=== PATIENT | male | born 2000 | race African-American/Black ===

== ENCOUNTER 2018-05-27 10:01 | Emergency (ER) | payer MEDICAID, OTHER ==
[2018-05-27] MEDS ORDERED: BOOSTRIX IM ONE (11:01)
[2018-05-27] MEDS ORDERED: IBUPROFEN PO ONE (11:01)
--- NOTE | 2018-05-27 11:06 | Emergency Department Report ---
ED Laceration HPI - HPI Chief Complaint: Extremity Injury, Upper Stated Complaint: THUMB INJURY Time Seen by Provider: 05/27/18 11:00 Occurred When: Today Location: Upper Extremity Severity: mild Tetanus Status: Not up to Date Laceration Symptoms: Yes Pain, No Foreign Body Sensation, No Numbness, No Weakness Other History: This is a 18-year-old male nontoxic, well nourished in appearance, no acute signs of distress presents to the ED with c/o of left thumb laceration that occurred this morning. Patient stated that a bed frame fell on his finger ankle laceration. Patient denies any other trauma. Denies decreased sensation or range of motion. Stated that bleeding is under control. Denies being of stated tetanus. Denies any nausea, vomiting, chest pain or shortness of breath, headache or stiff neck. Denies any allergies significant past medical history. ED Review of Systems ROS: Stated complaint: THUMB INJURY Other details as noted in HPI Constitutional: denies: chills, fever Eyes: denies: eye pain, eye discharge, vision change ENT: denies: ear pain, throat pain Respiratory: denies: cough, shortness of breath, wheezing Cardiovascular: denies: chest pain, palpitations Endocrine: no symptoms reported Gastrointestinal: denies: abdominal pain, nausea, diarrhea Genitourinary: denies: urgency, dysuria Musculoskeletal: denies: back pain, joint swelling, arthralgia Skin: denies: rash, lesions Neurological: denies: headache, weakness, paresthesias Psychiatric: denies: anxiety, depression Hematological/Lymphatic: denies: easy bleeding, easy bruising ED Past Medical Hx - Past Medical History Previous Medical History?: Yes Hx Diabetes: Yes Additional medical history: ADHD - Surgical History Past Surgical History?: No - Social History Smoking Status: Never Smoker Substance Use Type: None - Medications Home Medications: Home Medications Medication Instructions Recorded Confirmed Last Taken Type Dextroamphetamine/Amphetamine 1 tab PO DAILY 06/08/14 06/08/14 06/07/14 History [Adderall XR 30 mg] metFORMIN [Glucophage] 500 mg PO DAILY 06/08/14 06/08/14 06/07/14 History Ibuprofen [Motrin] 800 mg PO Q8H PRN #14 tablet 06/09/14 Unknown Rx Ondansetron [Zofran] 4 mg PO Q6HR PRN #14 tablet 06/09/14 Unknown Rx traMADol [Ultram] 50 mg PO Q6HR PRN #14 tablet 06/09/14 Unknown Rx Ibuprofen [Motrin] 600 mg PO Q8H PRN #20 tablet 05/27/18 Unknown Rx Laceration Physical Exam - Exam General: Vital signs noted. No distress. Alert and acting appropriately. Wound Length (cm): 1 Laceration Location: Upper Extremity Full Body Front + Back: 1 - 1 cm superficial laceration Laceration Exam: Yes Normal Distal CMS, No Foreign Body, No Exposed Tendon, Vessel, or Nerve, No Tendon Injury ED Course Vital Signs 05/27/18 10:06 Temperature 98.2 F Pulse Rate 82 Respiratory 18 Rate Blood Pressure 135/75 O2 Sat by Pulse 96 Oximetry - Reevaluation(s) Reevaluation #1: 05/27/18 11:03 Patient is speaking in full sentences with no signs of distress noted. - Laceration /Wound Repair Left Finger Wound Location: upper extremity Wound Length (cm): 1 Wound's Depth, Shape: superficial, linear Wound Explored: clean Irrigated w/ Saline (ccs): 40 Betadine Prep?: Yes Wound Repaired With: Dermabond Layer Closure?: No Sterile Dressing Applied?: Yes Progress: Under sterile field, I used Betadine to clean the area. I then used 40 mL of normal saline to flush the area. I then used Dermabond to approximate the laceration. I then applied a sterile 4 x 4 with tape. Minimal bleeding noted but is under control. Patient tolerated procedure well with no signs of distress. ED Medical Decision Making - Medical Decision Making This is a 18-year-old male that presents with laceration. Patient is stable and was examined by me. Dermabond applied to the laceration and and patient tolerated well. A sterile dressing has been applied. Patient was educated on proper wound care. Patient received tetanus booster in the ER. X-ray has been obtained and dictated per radiologist with no fractures or foreign body. Patient was notified of the x-ray results with no questions noted by the patient. Patient was instructed to refer to Follow-up with a primary care doct or in 3-5 days or if symptoms worsen and continue return to emergency room as soon as possible. At time of discharge, the patient does not seem toxic or ill in appearance. No acute signs of distress noted. Patient agrees to discharge treatment plan of care. No further questions noted by the patient. Critical care attestation.: If time is entered above; I have spent that time in minutes in the direct care of this critically ill patient, excluding procedure time. ED Disposition Clinical Impression: Laceration Contusion of left thumb Qualifiers: Encounter type: initial encounter Damage to nail status: without damage Qualified Code(s): S60.012A - Contusion of left thumb without damage to nail, initial encounter Disposition: TO HOME OR SELFCARE Is pt being admited?: No Does the pt Need Aspirin: No Condition: Stable Instructions: Laceration (ED), Skin Adhesive Care (ED) Additional Instructions: Follow-up with a primary care doctor in 3-5 days or if symptoms worsen and continue return to emergency room as soon as possible. Prescriptions: Ibuprofen [Motrin] 600 mg PO Q8H PRN #20 tablet PRN Reason: Pain Referrals: PRIMARY CAREMD [Primary Care Provider] - 3-5 Days JODY LOPES MD [Staff Physician] - 3-5 Days [facility] [place]] - 3-5 Days [facility] [Outside] - 3-5 Days Forms: Work/School Release Form(ED)
--- NOTE | 2018-05-27 12:03 | XRay Report ---
LEFT FINGERS, 3 VIEWS History: Left finger pain, laceration. Findings: No acute osseous injury or joint pathology is demonstrated. There is mild soft tissue swelling of the proximal thumb. Otherwise, the soft tissues are within normal limits. Impression: Soft tissue swelling of the left thumb. No acute osseous injury.
[2018-05-27 12:17] VITALS: BP 135/70
== END 2018-05-27 12:12 | disposition home or self-care (01) ==
LOC: ED 10:01
DX: S60.012A Contusion of left thumb without damage to nail, initial encounter (principal); E11.9 Type 2 diabetes mellitus without complications; W26.8XXA Contact with other sharp object(s), not elsewhere classified, initial encounter; Y93.89 Activity, other specified; Y92.098 Other place in other non-institutional residence as the place of occurrence of the external cause; Y99.8 Other external cause status
CPT/HCPCS: 90471; 90715

== ENCOUNTER 2019-05-07 04:51 | Emergency (ER) | payer SELFPAY ==
[2019-05-07 04:58] VITALS: BP 125/77
[2019-05-07] MEDS ORDERED: IBUPROFEN 800 MG TAB PO ONE (07:50)
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
== END 2019-05-07 08:38 | disposition home or self-care (01) ==
LOC: ED 04:51
DX: S60.042A Contusion of left ring finger without damage to nail, initial encounter (principal); E11.9 Type 2 diabetes mellitus without complications; Y04.0XXA Assault by unarmed brawl or fight, initial encounter; Y93.89 Activity, other specified; Y92.89 Other specified places as the place of occurrence of the external cause; Y99.8 Other external cause status
CPT/HCPCS: 99282

== ENCOUNTER 2020-07-03 05:18 | Emergency (ER) | payer BC ==
--- NOTE | 2020-07-03 06:07 | Event Note ---
ED Screening Note Date of service: 07/03/20 Time: 06:03 ED Screening Note: Patient complains of right arm and right knee pain after a fall last night; patient also complains of a laceration left hand States last tetanus 2 years ago This initial assessment/diagnostic orders/clinical plan/treatment(s) is/are subject to change based on patients health status, clinical progression and re- assessment by fellow clinical providers in the ED. Further treatment and workup at subsequent clinical providers discretion. Patient/guardian urged not to elope from the ED as their condition may be serious if not clinically assessed and managed. Initial orders include: xr
--- NOTE | 2020-07-03 06:35 | XRay Report ---
RIGHT KNEE 3 VIEW(S) INDICATION / CLINICAL INFORMATION: lateral pain after fall COMPARISON: None available. FINDINGS: BONES / JOINT(S): No acute fracture or subluxation. No significant arthritis. SOFT TISSUES: No significant abnormality. ADDITIONAL FINDINGS: None. Signer Name: Nick Kaur MD Signed: 07/03/2020 6:31 AM Workstation Name: [id number]
--- NOTE | 2020-07-03 06:59 | Emergency Department Report ---
ED General Adult HPI - General Chief complaint: Wound/Laceration Stated complaint: KNEE/ELBOW INJURY Time Seen by Provider: 07/03/20 05:50 Source: patient Mode of arrival: Ambulatory Limitations: No Limitations - History of Present Illness Initial comments: 20-year-old male patient presents with complaints of right knee pain, right elbow pain, and laceration to the left hand after a fall injury today. He reports his last tetanus vaccine was 2 years ago. Patient rates his pain as a 8/10 in severity overall. He denies any difficulty moving his elbow or his knee. He also denies any numbness/tingling/weakness in his limbs, however states there is mild swelling to the right knee. - Related Data Home Medications Medication Instructions Recorded Confirmed Last Taken Dextroamphetamine/Amphetamine 1 tab PO DAILY 06/08/14 06/08/14 06/07/14 [Adderall XR 30 mg] metFORMIN [Glucophage] 500 mg PO DAILY 06/08/14 06/08/14 06/07/14 Previous Rx's Medication Instructions Recorded Last Taken Type Ibuprofen [Motrin] 800 mg PO Q8H PRN #14 tablet 06/09/14 Unknown Rx Ondansetron [Zofran] 4 mg PO Q6HR PRN #14 tablet 06/09/14 Unknown Rx traMADoL [Ultram] 50 mg PO Q6HR PRN #14 tablet 06/09/14 Unknown Rx Ibuprofen [Motrin] 600 mg PO Q8H PRN #20 tablet 05/27/18 Unknown Rx Ibuprofen [Motrin] 800 mg PO Q8HR #30 tablet 05/07/19 Unknown Rx Mupirocin [Bactroban 2% OINT] 1 applic TP TID 7 Days #1 tube 07/03/20 Unknown Rx Naproxen 500 mg PO BID PRN 7 Days #14 tablet 07/03/20 Unknown Rx Allergies Allergy/AdvReac Type Severity Reaction Status Date / Time No Known Allergies Allergy Verified 05/27/18 10:11 ED Review of Systems ROS: Stated complaint: KNEE/ELBOW INJURY Other details as noted in HPI Constitutional: denies: chills, fever, malaise Respiratory: denies: shortness of breath Musculoskeletal: joint swelling, arthralgia. denies: back pain Skin: as per HPI. denies: change in color Neurological: denies: headache, numbness, paresthesias, abnormal gait ED Past Medical Hx - Past Medical History Hx Diabetes: Yes Additional medical history: ADHD - Surgical History Past Surgical History?: No - Social History Smoking Status: Never Smoker Substance Use Type: None - Medications Home Medications: Home Medications Medication Instructions Recorded Confirmed Last Taken Type Dextroamphetamine/Amphetamine 1 tab PO DAILY 06/08/14 06/08/14 06/07/14 History [Adderall XR 30 mg] metFORMIN [Glucophage] 500 mg PO DAILY 06/08/14 06/08/14 06/07/14 History Ibuprofen [Motrin] 800 mg PO Q8H PRN #14 tablet 06/09/14 Unknown Rx Ondansetron [Zofran] 4 mg PO Q6HR PRN #14 tablet 06/09/14 Unknown Rx traMADoL [Ultram] 50 mg PO Q6HR PRN #14 tablet 06/09/14 Unknown Rx Ibuprofen [Motrin] 600 mg PO Q8H PRN #20 tablet 05/27/18 Unknown Rx Ibuprofen [Motrin] 800 mg PO Q8HR #30 tablet 05/07/19 Unknown Rx Mupirocin [Bactroban 2% OINT] 1 applic TP TID 7 Days #1 tube 07/03/20 Unknown Rx Naproxen 500 mg PO BID PRN 7 Days #14 tablet 07/03/20 Unknown Rx ED Physical Exam - General Limitations: No Limitations General appearance: alert, in no apparent distress, obese - Head Head exam: Present: atraumatic, normocephalic - Eye Eye exam: Present: normal appearance - Neck Neck exam: Present: normal inspection - Respiratory Respiratory exam: Absent: respiratory distress - Cardiovascular Cardiovascular Exam: Present: regular rate - Extremities Exam Extremities exam: Present: full ROM, joint swelling (Hematoma noted to right lateral knee without overlying erythema; normal sensation and range of motion of the right knee noted; no tenderness to palpation of the right elbow or surrounding bones noted), other (Full range of motion of the right elbow is noted) - Back Exam Back exam: Present: full ROM - Neurological Exam Neurological exam: Present: alert, oriented X3 - Psychiatric Psychiatric exam: Present: normal affect, normal mood - Skin Skin exam: Present: warm, dry, normal color. Absent: intact (2 cm laceration noted to left dorsal aspect of hand without active bleeding or obvious foreign body), rash ED Course Vital Signs 07/03/20 07/03/20 05:30 07:47 Temperature 97.9 F 98 F Pulse Rate 112 H 85 Respiratory 14 18 Rate Blood Pressure 107/56 Blood Pressure 107/84 [Left] O2 Sat by Pulse 96 98 Oximetry - Laceration /Wound Repair Left Hand Wound Length (cm): 2 Wound's Depth, Shape: linear Wound Explored: clean Irrigated w/ Saline (ccs): 60 Betadine Prep?: Yes Anesthesia: 1% Lidocaine Volume Anesthetic (ccs): 2 Wound Repaired With: sutures Suture Size/Type: 4:0, proline Number of Sutures: 7 (Continue) Layer Closure?: No Sterile Dressing Applied?: Yes Progress: Patient tolerated procedure well without any immediate complication. Minimal bleeding occurred ED Medical Decision Making - Radiology Data Radiology results: report reviewed RIGHT KNEE 3 VIEW(S) INDICATION / CLINICAL INFORMATION: lateral pain after fall COMPARISON: None available. FINDINGS: BONES / JOINT(S): No acute fracture or subluxation. No significant arthritis. SOFT TISSUES: No significant abnormality. ADDITIONAL FINDINGS: None. - Medical Decision Making 20-year-old male patient presents with complaints of right knee pain, right elbow pain, and laceration to the left hand after a fall injury today. He reports his last tetanus vaccine was 2 years ago. Patient rates his pain as a 8/10 in severity overall. He denies any difficulty moving his elbow or his knee. He also denies any numbness/tingling/weakness in his limbs, however states there is mild swelling to the right knee. Laceration repair. Patient tolerated procedure well. X-ray of the knee is negative for any acute bony abnormality. Patient placed in Be wrap and instructed on rice method for right knee sprain and contusion. Recommend follow-up with primary care doctor in 3 to 5 days. Patient to return to ED in 10 days for suture removal. Wound care and signs and symptoms that should prompt immediate return to the emergency department were discussed in detail with patient who verbalized understanding. He is well-appearing, his vitals are normal, he is stable for discharge home peer Critical care attestation.: If time is entered above; I have spent that time in minutes in the direct care of this critically ill patient, excluding procedure time. ED Disposition Clinical Impression: Laceration of left hand Qualifiers: Encounter type: initial encounter Foreign body presence: without foreign body Qualified Code(s): S61.412A - Laceration without foreign body of left hand, initial encounter Contusion of left knee Qualifiers: Encounter type: initial encounter Qualified Code(s): S80.02XA - Contusion of left knee, initial encounter Disposition: TO HOME OR SELFCARE Is pt being admited?: No Condition: Stable Instructions: Sutured Wound Care, Knee Sprain, Adult Additional Instructions: Return to the emergency department in 10 days for suture removal Prescriptions: Mupirocin [Bactroban 2% OINT] 1 applic TP TID 7 Days #1 tube Naproxen 500 mg PO BID PRN 7 Days #14 tablet PRN Reason: pain Referrals: PRIMARY CARE,MD [Primary Care Provider] - 3-5 Days Forms: Work/School Release Form(ED)
[2020-07-03] MEDS ORDERED: IBUPROFEN 600 MG TAB PO ONE (07:05)
[2020-07-03 07:48] VITALS: BP 107/84
== END 2020-07-03 07:50 | disposition home or self-care (01) ==
LOC: ED 05:18
DX: S61.412A Laceration without foreign body of left hand, initial encounter (principal); S80.01XA Contusion of right knee, initial encounter; E11.9 Type 2 diabetes mellitus without complications; Z79.1 Long term (current) use of non-steroidal anti-inflammatories (NSAID); Z79.899 Other long term (current) drug therapy; X58.XXXA Exposure to other specified factors, initial encounter; Y93.89 Activity, other specified; Y92.89 Other specified places as the place of occurrence of the external cause; Y99.8 Other external cause status

== ENCOUNTER 2020-07-03 23:46 | Emergency (ER) | payer BC ==
[2020-07-03 23:57] VITALS: BP 111/60
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
== END 2020-07-04 03:03 | disposition home or self-care (01) ==
LOC: ED 23:46
DX: S09.90XA Unspecified injury of head, initial encounter (principal); E11.9 Type 2 diabetes mellitus without complications; Z79.899 Other long term (current) drug therapy; Y04.8XXA Assault by other bodily force, initial encounter; Y93.89 Activity, other specified; Y92.89 Other specified places as the place of occurrence of the external cause; Y99.8 Other external cause status
CPT/HCPCS: 70486; 99283

== ENCOUNTER 2020-07-29 03:58 | Emergency (ER) | payer BC ==
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
[2020-07-29 04:21] VITALS: BP 134/78
== END 2020-07-29 04:17 | disposition home or self-care (01) ==
LOC: ED 03:58
DX: S61.412D Laceration without foreign body of left hand, subsequent encounter (principal); Z48.02 Encounter for removal of sutures; E11.9 Type 2 diabetes mellitus without complications; Z79.899 Other long term (current) drug therapy; Z79.1 Long term (current) use of non-steroidal anti-inflammatories (NSAID); X58.XXXD Exposure to other specified factors, subsequent encounter
CPT/HCPCS: 99282